=== PATIENT | female | born 1990 | race African-American/Black ===

== ENCOUNTER → 2019-08-16 | Outpatient (CLI) | payer OTHER ==
[2019-04-05 12:00] VITALS: BP 104/62
[~2019-08-16] MED LIST: APIX5TAB PO; HYDR-2759 PO; METO-239 PO; METO25TA4 PO
--- NOTE | 2019-08-16 16:05 | KCIC ---
EXAM: Brain MRI without contrast. HISTORY: Headaches. Lightheadedness. TECHNIQUE: Multiplanar, multisequence magnetic resonance imaging of the brain was performed without contrast. COMPARISON: None. FINDINGS: The exam is limited due to motion end of instrumentation which obscures the inferior anterior cranial fossa. There is no restricted diffusion to suggest acute or subacute infarction. There is no susceptibility effect to suggest hemorrhage. There is no mass effect or midline shift. There is no hydrocephalus. There is a suspected chronic focus of encephalomalacia within the anterior right external capsule. This may be due to chronic lacunar infarction. There are normal flow voids within the cerebral vessels. The orbits and paranasal sinuses cannot be assessed due to aforementioned dental instrumentation. The mastoid air cells are clear. IMPRESSION: 1. No acute intracranial finding. 2. Tiny focus of encephalomalacia within the anterior right external capsule, possibly due to a chronic lacunar infarct. 3. Limited exam due to motion and metallic dental instrumentation. Electronically signed by: Laura Boswell MD (08/16/2019 4:02 PM) [facility]
== END | disposition home or self-care (01) ==
LOC: KCIC MRI 12:08
PROVIDERS: ATTEND Registered Nurse
DX: G93.89 Other specified disorders of brain (principal)
CPT/HCPCS: 70551

== ENCOUNTER → 2020-10-10 | Outpatient (CLI) | payer OTHER ==
[2019-04-05 12:00] VITALS: BP 104/62
--- NOTE | 2020-10-11 10:14 | CARD ---
MR#: [id number] Date of Study: 10/10/2020 Ordering Physician: MADI KILLIAN, Referring Physician: MADI KILLIAN, Tech: Bhumi Mcfarland [facility] APPROVED REPORT EXAM: Two-dimensional and M-mode echocardiogram with Doppler and color Doppler. Other Information Quality : AverageHR: 74bpm Rhythm : NSR INDICATION 2D DIMENSIONS RVDd3.6 (2.9-3.5cm)Left Atrium(2D)3.1 (1.6-4.0cm) IVSd0.8 (0.7-1.1cm)Aortic Root(2D)2.6 (2.0-3.7cm) LVDd4.6 (3.9-5.9cm)LVOT Diameter2.1 (1.8-2.4cm) PWd0.8 (0.7-1.1cm)LVDs2.5 (2.5-4.0cm) FS (%) 44.8 %SV72.7 ml LVEF(%)76.2 (>50%) Aortic Valve AoV Peak Julius.127.0cm/sAoV VTI29.4cm AO Peak GR.6.4mmHgLVOT Peak Julius.68.5cm/s AO Mean GR.3mmHgAVA (VMAX)1.80cm2 Mitral Valve MV E Cvzjqiqp851.6cm/sMV DECEL [id number] MV A Bkxdtreb28.0cm/sE/A Ratio2.0 Pulmonary Valve PV Peak Twicgtvo50.3cm/s Tricuspid Valve TR P. Rzfbfahv799zd/sTR Peak Gr.19mmHg Pulmonary Vein S1 Qxsxiysa96.5cm/sD2 Lslhujoh45.6cm/s PVa [id number] LEFT VENTRICLE The left ventricle is normal size. There is normal left ventricular wall thickness. The left ventricu lar systolic function is normal. Estimated ejection fraction 55-60%. There is normal LV segmental wa ll motion. The left ventricular diastolic function and filling is normal for age. RIGHT VENTRICLE The right ventricle is normal size. There is normal right ventricular wall thickness. The right ventr icular systolic function is normal. ATRIA The left atrium size is normal. The right atrium size is normal. The interatrial septum is intact wit h no evidence for an atrial septal defect or patent foramen ovale as noted on 2-D or Doppler imaging. AORTIC VALVE The aortic valve is normal in structure and function. Doppler and Color Flow revealed no significant aortic regurgitation. There is no significant aortic valvular stenosis. MITRAL VALVE The mitral valve is normal in structure and function. There is no evidence of mitral valve prolapse. There is no mitral valve stenosis. Doppler and Color-flow revealed mild mitral regurgitation. TRICUSPID VALVE The tricuspid valve is normal in structure and function. Doppler and Color Flow revealed mild tricusp id regurgitation. There is no tricuspid valve stenosis. PULMONIC VALVE The pulmonary valve is normal in structure and function. Doppler and Color Flow revealed mild pulmoni c valvular regurgitation. GREAT VESSELS The aortic root is normal in size. The ascending aorta is normal in size. The pulmonary artery is nor mal. The IVC is normal in size and collapses >50% with inspiration. PERICARDIAL EFFUSION There is no evidence of significant pericardial effusion. Critical Notification Critical Value: No <Conclusion> The left ventricular systolic function is normal. Estimated ejection fraction 55-60%. There is normal LV segmental wall motion. s/p ASD repair with Amplatzer septal occluder, appears well seated without any residual shunt on colo r dupler. Mild mitral regurgitation. Mild tricuspid regurgitation. There is no evidence of significant pericardial effusion. Signed by : Hawk Gardner, Electronically Approved : 10/11/2020 10:14:26
== END ==
LOC: ECHO 08:55
PROVIDERS: ATTEND Internal Medicine Cardiovascular Disease
DX: I08.8 Other rheumatic multiple valve diseases (principal); Q21.1 Atrial septal defect
CPT/HCPCS: 93306